=== PATIENT | female | born 1995 | race African-American/Black ===

== ENCOUNTER 2017-02-25 06:05 | Day surgery (SDC) | payer OTHER ==
[~2017-02-25] VITALS: Ht 160 cm; Wt 117.9 kg
[2017-02-25 09:35] VITALS: BP 127/82
--- NOTE | 2017-02-25 14:18 | Operative Note ---
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 The lesion was marked out and the markup was incised and the lesion was submitted. Measured 1.5 cm. Bleeding was stopped with bipolar cautery. Blood loss was less than 5 mL. A tissue rearrangement geometric plastic repair was done with interrupted 6-0 Vicryl and 6-0 nylon sutures. A Dermabond dressing was applied and the patient was sent to recovery in good general condition. Dr. Shar Bowles EBL (): 2 Specimens obtained: Same as above at [id number]
== END 2017-02-25 09:33 | disposition home or self-care (01) ==
LOC: SDC 06:05
PROVIDERS: Otolaryngology
PROC: 0HB3XZX Excision of Left Ear Skin, External Approach, Diagnostic (ICD-10-PCS; principal; 2017-02-25 07:30)
DX: D49.2 Neoplasm of unspecified behavior of bone, soft tissue, and skin (principal)